=== PATIENT | female | born 1950 | race Caucasian/White ===

== ENCOUNTER 2017-08-31 08:48 | Outpatient (CLI) | payer OTHER ==
--- NOTE | 2017-09-01 12:43 | DEXA Report ---
REVISED: THIS REPORT WAS ORIGINALLY SIGNED ON 09/01/2017 @ 1514. NO CHANGES WERE MADE TO THE REPORT. THE [facility] RE[facility] ON . DEXA SCAN: 08/31/2017 INDICATION: Osteopenia. Osteoporosis screening. TECHNIQUE: Dual energy x-ray absorptiometry (DXA) was performed on a [employer] system. Regions measured are the AP spine, femoral neck, and, if needed, forearm. COMPARISON: None. In accordance with the International Society for Clinical Densitometry (ISCD) guidelines, data from previous exams may be reanalyzed using current recommendations and techniques. This is done to allow a more accurate basis for comparison with the current study. FINDINGS Data for the lumbar spine is as follows: REGION BMD (g/cm/cm) T-SCORE Z-SCORE L1 1.138 0.1 0.8 L2 1.244 0.4 1.1 L3 1.197 0.0 0.7 L4 0.997 -1.7 -1.0 TOTAL 1.135 -0.4 0.4 NOTE: All evaluable vertebrae are used for classification. Data for the hip is as follows: REGION BMD (g/cm/cm) T-SCORE Z-SCORE Neck 1.001 -0.3 0.6 TOTAL 0.938 -0.6 0.0 NOTE: The femoral neck or total proximal femur, whichever is lowest, is used for classification. IMPRESSION: THE WHO CLASSIFICATION BASED ON THE INTERNATIONAL REFERENCE STANDARD IS OSTEOPENIA. FRACTURE RISK IS INCREASED. RECOMMENDATION: Patients with diagnosis of osteoporosis or osteopenia should have regular bone mineral density assessment. For those eligible for Medicare, routine testing is allowed once every 2 years. Testing frequency can be increased for patients who have rapidly progressing disease or for those who are receiving medical therapy to restore bone mass. COMMENT: World Health Organization (WHO) definitions for osteoporosis and osteopenia: NORMAL BMD: T-score at -1.0 or higher, fracture risk is low. OSTEOPENIA BMD: T-score between -1.0 and -2.5, fracture risk is increased. OSTEOPOROSIS BMD: T-score at -2.5 or lower, fracture risk high. National Osteoporosis Foundation recommends: 1. Obtain adequate dietary calcium (at least 1200 mg per day) and vitamin D (400 -800 international units per day). 2. Participate, as appropriate, in regular weightbearing and muscle- strengthening exercise. 3. Avoid tobacco use and reduce alcohol and caffeine intake. 4. For more detailed information see the website at www.NOF.org. MTDD
== END 2017-08-31 08:49 | disposition home or self-care (01) ==
LOC: DI 08:48
PROVIDERS: ATTEND Naturopath
DX: M85.80 Other specified disorders of bone density and structure, unspecified site (principal); Z78.0 Asymptomatic menopausal state
CPT/HCPCS: 77080

== ENCOUNTER 2018-04-24 08:24 | Outpatient (CLI) | payer MEDICARE, BC | END 2018-04-24 08:25 | disposition home or self-care (01) | LOC: LAB.F 08:24 | PROVIDERS: ATTEND Naturopath | DX: R79.82 Elevated C-reactive protein (CRP) (principal) | CPT/HCPCS: 36415; 86141 ==

== ENCOUNTER 2018-08-30 08:26 | Outpatient (CLI) | payer MEDICARE, BC ==
[2018-08-30 11:09] LABS: BASOPHILS # (AUTO) 0.1 10^3/uL (0.0-0.1); BASOPHILS % (AUTO) 0.8 %; EOSINOPHILS # (AUTO) 0.1 10^3/uL (0.0-0.7); EOSINOPHILS % (AUTO) 2.4 %; HGB - HEMOGLOBIN 12.9 g/dL (12.0-16.0); LYMPHOCYTES # (AUTO) 1.7 10^3/uL (1.5-3.5); LYMPHOCYTES % (AUTO) 28.4 %; MEAN CORPUSCULAR HEMOGLOBIN 29.4 pg (27.0-31.0); MEAN CORPUSCULAR HGB CONC 33.4 g/dL (32.0-36.0); MEAN CORPUSCULAR VOLUME 88.1 fL (81.0-99.0); MONOCYTES # (AUTO) 0.5 10^3/uL (0.0-1.0); MONOCYTES % (AUTO) 8.1 %; NEUTROPHILS # (AUTO) 3.7 10^3/uL (1.5-6.6); NEUTROPHILS % (AUTO) 60.3 %; PLT - PLATELET COUNT 477 10^3/uL (130-450); RED BLOOD COUNT 4.39 10^6/uL (4.20-5.40); RED CELL DISTRIBUTION WIDTH 13.9 % (12.0-15.0); WHITE BLOOD COUNT 6.1 x10^3/uL (4.8-10.8)
[2018-08-30 11:44] LABS: HB2 TOTAL 13.9 g/dL; HEMOGLOBIN A1C 0.52 g/dL; HEMOGLOBIN A1C % 5.6 % (4.6-6.2)
[2018-08-30 12:41] LABS: ALBUMIN 3.5 g/dL (3.2-5.5); ALBUMIN/GLOBULIN RATIO 0.9 (1.0-2.2); ALKALINE PHOSPHATASE 109 IU/L (42-121); ALT ALANINE AMINOTRANSFERASE 24 IU/L (10-60); AST ASPARTATE AMINOTRANSFERASE 38 IU/L (10-42); BILIRUBIN,TOTAL 0.7 mg/dL (0.2-1.0); BUN - BLOOD UREA NITROGEN 10 mg/dL (6-20); CALCIUM 9.4 mg/dL (8.5-10.3); CARBON DIOXIDE - CO2 27 mmol/L (21-32); CHLORIDE 101 mmol/L (101-111); CHOL/HDL RATIO 5.6 (<4.4); CHOLESTEROL 237 mg/dL; CREATININE 1.1 mg/dL (0.4-1.0); GFR - MDRD 50 (>89); GLUCOSE 90 mg/dL (70-100); HDL CHOLESTEROL 42 mg/dL; LDL CHOLESTEROL,CALCULATED 163 mg/dL; LDL/HDL RATIO 3.9 (<4.4); SODIUM 137 mmol/L (135-145); TOTAL PROTEIN 7.2 g/dL (6.7-8.2); VLDL CHOLESTEROL 32 mg/dL
[2018-08-30 13:12] LABS: THYROID STIMULATING HORMONE 4.32 uIU/mL (0.34-5.60)
[2018-08-30 13:14] LABS: FREE T4 (FREE THYROXINE) 0.97 ng/dL (0.58-1.64)
[2018-08-30 13:19] LABS: TOTAL T3 1.08 ng/mL (0.87-1.78)
== END 2018-08-30 08:27 | disposition home or self-care (01) ==
LOC: LAB.F 08:26
PROVIDERS: ATTEND Naturopath
DX: Z00.01 Encounter for general adult medical examination with abnormal findings (principal); Z12.4 Encounter for screening for malignant neoplasm of cervix; Z13.0 Encounter for screening for diseases of the blood and blood-forming organs and certain disorders involving the immune mechanism; Z13.1 Encounter for screening for diabetes mellitus; Z13.220 Encounter for screening for lipoid disorders; Z13.21 Encounter for screening for nutritional disorder; Z13.29 Encounter for screening for other suspected endocrine disorder
CPT/HCPCS: 36415; 80053; 80061; 83036; 83721; 84439; 84443; 84480; 85025

== ENCOUNTER 2018-12-28 12:40 | Outpatient (CLI) | payer MEDICARE, BC | END 2018-12-28 12:41 | disposition home or self-care (01) | LOC: RT 12:40 | PROVIDERS: ATTEND Internal Medicine Cardiovascular Disease | DX: Z13.6 Encounter for screening for cardiovascular disorders (principal) | CPT/HCPCS: 93005 ==

== ENCOUNTER 2019-05-25 16:16 | Outpatient (CLI) | payer MEDICARE, BC ==
--- NOTE | 2019-05-26 10:04 | Ultrasound Report ---
Reason: ELEVATED CRP, PURE HYPERCHOLESTEROLEMIA, CARDIOVAS Procedure Date: 05/25/2019 Accession Number: [id number] / [id number] Procedure: US - Carotid Doppler Complete CPT Code: FULL RESULT: EXAM: BILATERAL CAROTID AND VERTEBRAL ARTERY DUPLEX DOPPLER ULTRASOUND: EXAM DATE: 05/25/2019 04:43 PM CLINICAL HISTORY: Elevated CRP, pure hypercholesterolemia. COMPARISON: None. TECHNIQUE: Grayscale imaging, color Doppler, and duplex spectral Doppler were used to evaluate the carotid and vertebral arteries bilaterally. Static images were obtained. FINDINGS: No significant plaque is identified in the right or left common or internal carotid arteries. Normal antegrade flow is present in bilateral vertebral arteries. VELOCITIES (cm/sec): Right CCA mid: PSV 90 cm/sec CCA dist: PSV 86 cm/sec ICA prox: PSV 68 cm/sec, EDV 23 cm/sec ICA mid: PSV 87 cm/sec, EDV 31 cm/sec ICA dist: PSV 57 cm/sec, EDV 23 cm/sec ECA: PSV 76 cm/sec Vert: PSV 44 cm/sec ICA/CCA: 0.96 Left CCA mid: PSV 80 cm/sec CCA dist: PSV 78 cm/sec ICA prox: PSV 59 cm/sec, EDV 23 cm/sec ICA mid: PSV 68 cm/sec, EDV 27 cm/sec ICA dist: PSV 66 cm/sec, EDV 27 cm/sec ECA: PSV 99 cm/sec Vert: PSV 39 cm/sec ICA/CCA: 0.85 ICA diameter stenosis: Right: Normal by velocity and <70% by NASCET criteria. Left: Normal by velocity and <70% by NASCET criteria. IMPRESSION: 1. No significant bilateral carotid artery plaquing. 2. In the right carotid artery there are no elevated carotid artery velocities to suggest hemodynamically significant stenosis. 3. In the left carotid artery there are no elevated carotid artery velocities to suggest hemodynamically significant stenosis. 4. Normal antegrade flow is present in bilateral vertebral arteries. General Recommendations: Stenosis =50% ICA - Follow-up ultrasound 6-12 months Stenosis <50% ICA - High Risk Patient with plaque - Follow-up ultrasound 1-2 years Normal Study but High Risk Patient - Follow-up ultrasound 3-5 years Management recommendations and diagnostic criteria are based on current IAC endorsed standards in Carotid Artery Stenosis: Grayscale and Doppler Ultrasound Diagnosis. Validated velocity measurements with angiographic measurements and velocity criteria are extrapolated from diameter data as defined by the Society of Radiologists in Ultrasound Consensus Conference Radiology 2003; 229;340-346. RADIA
== END 2019-05-25 16:17 | disposition home or self-care (01) ==
LOC: DI 16:16
PROVIDERS: ATTEND Naturopath
DX: Z13.6 Encounter for screening for cardiovascular disorders (principal); R79.82 Elevated C-reactive protein (CRP); E78.00 Pure hypercholesterolemia, unspecified; E78.01 Familial hypercholesterolemia
CPT/HCPCS: 93880

== ENCOUNTER 2019-11-13 11:56 | Outpatient (CLI) | payer MEDICARE, BC ==
--- NOTE | 2019-11-14 14:55 | DEXA Report ---
Reason: SCREENING FOR OSTEOPOROSIS Procedure Date: 11/13/2019 Accession Number: [id number] / [id number] Procedure: DEX - Dexa Spine and/or Hip CPT Code: Final Report FULL RESULT: EXAM: Dexa Spine and/or Hip, Dexa Forearm DATE: 11/13/2019 12:26 PM CLINICAL HISTORY: SCREENING FOR OSTEOPOROSIS. POSTMENOPAUSAL. TECHNIQUE: Dual energy x-ray absorptiometry (DXA) was performed on a [employer] System. Regions measured are the AP Spine, femoral neck, and if needed forearm. COMPARISON: 08/31/2017 In accordance with the International Society for Clinical Densitometry (ISCD) guidelines, data from previous exams may be reanalyzed using current recommendations and techniques. This is done to allow a more accurate basis for comparison with the current study. FINDINGS: The data for the lumbar spine is as follows: BMD (g/cm/cm) T-SCORE Z-SCORE REGION L1 1.073 -0.5 0.1 L2 1.149 -0.4 0.1 L3 1.199 0.0 0.6 L4 1.015 -1.5 -1.0 TOTAL 1.105 -0.6 -0.1 NOTE: All evaluable vertebrae are used for classification The data for the hip is as follows: BMD (g/cm/cm) T-SCORE Z-SCORE REGION Neck 0.905 -1.0 -0.1 TOTAL 0.937 -0.6 0.0 NOTE: The femoral neck or total proximal femur, whichever is lowest, is used for classification. The data for the left forearm is as follows: BMD (g/cm/cm) T-SCORE Z-SCORE REGION 1/3 0.821 -0.6 0.9 NOTE: The 33% radius of the nondominant forearm is used for classification. DXA RESULTS SUMMARY: Spine SCAN DATE AGE BMD CHANGE VS CHANGE VS PREVIOUS PREVIOUS % [birth year]/15[birth year]2019 [age] 1.105 -0.030* -2.6* 08/31/2017 [age] 1.135 * Denotes significant change at the 95% confidence level. Denotes dissimilar scan types or analysis methods. DXA RESULTS SUMMARY: Hip SCAN DATE AGE BMD CHANGE VS CHANGE VS PREVIOUS PREVIOUS % [birth year][age][birth year]2019 [age] 0.937 -0.001 -0.1 08/31/2017 [age] 0.938 * Denotes significant change at the 95% confidence level. Denotes dissimilar scan types or analysis methods. IMPRESSION: THE WHO CLASSIFICATION BASED ON THE INTERNATIONAL REFERENCE STANDARD IS OSTEOPENIA (REFERENCE LEFT HIP NECK). THE FRACTURE RISK IS INCREASED. RECOMMENDATION: Patients with diagnosis of osteoporosis or osteopenia should have regular bone mineral density assessment. For those eligible for Medicare, routine testing is allowed once every 2 years. Testing frequency can be increased for patients who have rapidly progressing disease or for those who are receiving medical therapy to restore bone mass. COMMENT: World Health Organization (WHO) definitions for osteoporosis and osteopenia: NORMAL BMD: T-score at -1.0 or higher, fracture risk is low OSTEOPENIA BMD: T-score between -1.0 and -2.5, fracture risk is increased. OSTEOPOROSIS BMD: T-score at -2.5 or lower, fracture risk is high. National Osteoporosis Foundation recommends: 1. Obtain adequate dietary calcium (at least 1200 mg per day) and vitamin D (400-800 international units per day). 2. Participate, as appropriate, in regular weightbearing and muscle-strengthening exercise. 3. Avoid tobacco use and reduce alcohol and caffeine intake. 4. For more detailed information see the website at www.NOF.org.
--- NOTE | 2019-11-14 14:55 | DEXA Report ---
Reason: L SPINE DENSITY DID FOREARM Procedure Date: 11/13/2019 Accession Number: [id number] / [id number] Procedure: DEX - Dexa Forearm CPT Code: Final Report FULL RESULT: EXAM: Dexa Spine and/or Hip, Dexa Forearm DATE: 11/13/2019 12:26 PM CLINICAL HISTORY: SCREENING FOR OSTEOPOROSIS. POSTMENOPAUSAL. TECHNIQUE: Dual energy x-ray absorptiometry (DXA) was performed on a [employer] System. Regions measured are the AP Spine, femoral neck, and if needed forearm. COMPARISON: 08/31/2017 In accordance with the International Society for Clinical Densitometry (ISCD) guidelines, data from previous exams may be reanalyzed using current recommendations and techniques. This is done to allow a more accurate basis for comparison with the current study. FINDINGS: The data for the lumbar spine is as follows: BMD (g/cm/cm) T-SCORE Z-SCORE REGION L1 1.073 -0.5 0.1 L2 1.149 -0.4 0.1 L3 1.199 0.0 0.6 L4 1.015 -1.5 -1.0 TOTAL 1.105 -0.6 -0.1 NOTE: All evaluable vertebrae are used for classification The data for the hip is as follows: BMD (g/cm/cm) T-SCORE Z-SCORE REGION Neck 0.905 -1.0 -0.1 TOTAL 0.937 -0.6 0.0 NOTE: The femoral neck or total proximal femur, whichever is lowest, is used for classification. The data for the left forearm is as follows: BMD (g/cm/cm) T-SCORE Z-SCORE REGION 1/3 0.821 -0.6 0.9 NOTE: The 33% radius of the nondominant forearm is used for classification. DXA RESULTS SUMMARY: Spine SCAN DATE AGE BMD CHANGE VS CHANGE VS PREVIOUS PREVIOUS % [birth year][age][birth year]/2019 69.1 1.105 -0.030* -2.6* 08/31/2017 66.9 1.135 * Denotes significant change at the 95% confidence level. Denotes dissimilar scan types or analysis methods. DXA RESULTS SUMMARY: Hip SCAN DATE AGE BMD CHANGE VS CHANGE VS PREVIOUS PREVIOUS % [birth year][age][birth year]/2019 69.1 0.937 -0.001 -0.1 08/31/2017 66.9 0.938 * Denotes significant change at the 95% confidence level. Denotes dissimilar scan types or analysis methods. IMPRESSION: THE WHO CLASSIFICATION BASED ON THE INTERNATIONAL REFERENCE STANDARD IS OSTEOPENIA (REFERENCE LEFT HIP NECK). THE FRACTURE RISK IS INCREASED. RECOMMENDATION: Patients with diagnosis of osteoporosis or osteopenia should have regular bone mineral density assessment. For those eligible for Medicare, routine testing is allowed once every 2 years. Testing frequency can be increased for patients who have rapidly progressing disease or for those who are receiving medical therapy to restore bone mass. COMMENT: World Health Organization (WHO) definitions for osteoporosis and osteopenia: NORMAL BMD: T-score at -1.0 or higher, fracture risk is low OSTEOPENIA BMD: T-score between -1.0 and -2.5, fracture risk is increased. OSTEOPOROSIS BMD: T-score at -2.5 or lower, fracture risk is high. National Osteoporosis Foundation recommends: 1. Obtain adequate dietary calcium (at least 1200 mg per day) and vitamin D (400-800 international units per day). 2. Participate, as appropriate, in regular weightbearing and muscle-strengthening exercise. 3. Avoid tobacco use and reduce alcohol and caffeine intake. 4. For more detailed information see the website at www.NOF.org.
== END 2019-11-13 11:57 | disposition home or self-care (01) ==
LOC: DI 11:56
PROVIDERS: ATTEND Naturopath
DX: Z13.820 Encounter for screening for osteoporosis (principal); M85.88 Other specified disorders of bone density and structure, other site; Z78.0 Asymptomatic menopausal state
CPT/HCPCS: 77080; 77081

== ENCOUNTER 2019-11-13 12:00 | Outpatient (CLI) | payer MEDICARE, BC ==
--- NOTE | 2019-11-15 09:05 | Mammography Report ---
Reason: ROUTINE MAMMO Procedure Date: 11/13/2019 Accession Number: [id number] / [id number] Procedure: [place] - Screening Mammo w/Rudy CPT Code: Final Report FULL RESULT: EXAM: Screening Mammo w/Rudy DATE: 11/13/2019 1:03 PM CLINICAL HISTORY: The patient is an asymptomatic 69-year-old female no reported personal nor family history breast cancer. TECHNIQUE: (B) - Bilateral CC, laterally exaggerated CC, MLO views were obtained. COMPARISON: 05/06/2015, 02/20/2014 and 01/25/2013 PARENCHYMAL PATTERN: (A) - The breasts demonstrate scattered fibroglandular densities bilaterally. FINDINGS: The pattern of nodular asymmetry is accentuated by interval involution and positional variation. There are no suspicious masses, calcifications, or areas of distortion. IMPRESSION: Benign findings. BI-RADS category 2. RECOMMENDATION: (ANNUAL) - Recommend routine annual screening mammography. BI-RADS CATEGORY: (2) - Benign Findings. STANDARD QUALIFYING STATEMENTS: A negative or benign imaging report should not preclude biopsy if clinically suspicious findings are present. Dense breasts may obscure an underlying neoplasm. This examination was reviewed with the aid of 3D breast imaging (tomosynthesis).
== END 2019-11-13 12:01 | disposition home or self-care (01) ==
LOC: DI 12:00
PROVIDERS: ATTEND Naturopath
DX: Z12.31 Encounter for screening mammogram for malignant neoplasm of breast (principal)
CPT/HCPCS: 77063; 77067

== ENCOUNTER 2022-03-10 10:02 | Outpatient (CLI) | payer MEDICARE, BC ==
--- NOTE | 2022-03-12 16:19 | Mammography Report ---
BILATERAL DIGITAL SCREENING MAMMOGRAM 3D/2D: 03/10/2022 CLINICAL: Routine screening. Comparison is made to exams dated: 11/13/2019 mammogram, 05/06/2015 mammogram - [facility], 02/20/2014 mammogram, and 01/25/2013 mammogram - outside facility. The tissue of both breasts i s predominantly fatty. There is a possible focal asymmetry in the right breast at 10 o'clock posterior depth. There is arch itectural distortion associated with the focal asymmetry. There also is an asymmetry in the right breast posterior depth lateral region seen on the craniocauda l view only. There is a possible focal asymmetry in the left breast at 1 o'clock middle depth. No other significant masses or calcifications are seen in either breast. IMPRESSION: INCOMPLETE: NEEDS ADDITIONAL IMAGING EVALUATION The possible focal asymmetry in the right breast at 10 o'clock posterior depth is indeterminate. Add itional views are recommended. The asymmetry in the right breast posterior depth lateral region seen on the craniocaudal view only i s indeterminate. Additional views with possible ultrasound are recommended. The possible focal asymmetry in the left breast at 1 o'clock middle depth is indeterminate. Addition al views with possible ultrasound are recommended. This exam was interpreted at Station ID: [id number]. NOTE: For mammograms, a report in lay terms will be sent to the patient. Approximately 15% of breast malignancies will not be visualized mammographically. In the management of a palpable breast mass, a negative mammogram must not discourage biopsy of a clinically suspicious lesion. Electronically Signed By: Garland Odonnell M.D., jr/mike:03/10/2022 11:35:07 ACR BI-RADS Category 0: Incomplete 3340F PARENCHYMAL PATTERN: (F) - The breast(s) demonstrate(s) diffuse fatty replacement. BI-RADS CATEGORY: (0) - 0 Mammo and [place] [id number] Immediate follow-up LATERALITY: (B)
== END 2022-03-10 10:03 | disposition home or self-care (01) ==
LOC: DI.S 10:02
PROVIDERS: ATTEND Naturopath
DX: Z12.31 Encounter for screening mammogram for malignant neoplasm of breast (principal); R92.8 Other abnormal and inconclusive findings on diagnostic imaging of breast

== ENCOUNTER 2022-03-16 12:52 | Outpatient (CLI) | payer MEDICARE, BC ==
--- NOTE | 2022-03-16 14:07 | DEXA Report ---
PROCEDURE: Dexa Spine and/or Hip INDICATIONS: POST MENOPAUSAL TECHNIQUE: Dual energy x-ray absorptiometry (DXA) was performed on a [employer] System. Regions measur ed are the AP Spine, femoral neck, and if needed forearm. COMPARISON: 11/13/2019 FINDINGS: Lumbar Spine: Bone Mineral Density 1.101 g/cm/cm,T score -0.7, normal, change from previous -0.4% Left Hip: Bone Mineral Density 0.944 g/cm/cm,T score -0.5, normal, change from previous 0.7% Left Femoral Neck: Bone Mineral Density 0.911 g/cm/cm, T score -0.9, normal, not compared to prior Left forearm: Bone Mineral Density 0.811 g/cm/cm, T score -0.7, normal, change from previous -1.2% (T score greater or equal to -1.0: NORMAL) (T score from -1.1 to -2.4: OSTEOPENIA) (T score less than or equal to -2.5 to: OSTEOPOROSIS) Impression: 1. Normal bone mineral density without significant change compared to prior. Patients with diagnosis of osteoporosis or osteopenia should have regular bone mineral density assess ment. For those eligible for Medicare, routine testing is allowed once every 2 years. Testing frequ ency can be increased for patients who have rapidly progressing disease or for those who are receivin g medical therapy to restore bone mass. Reviewed by: Wendy Arango MD on 03/16/2022 2:05 PM PDT Approved by: Wendy Arango MD on 03/16/2022 2:05 PM PDT Station ID: [id number]
== END 2022-03-16 12:53 | disposition home or self-care (01) ==
LOC: DI 12:52
PROVIDERS: ATTEND Naturopath
DX: Z78.0 Asymptomatic menopausal state (principal)

== ENCOUNTER 2022-05-25 13:02 | Outpatient (CLI) | payer MEDICARE, BC ==
--- NOTE | 2022-05-26 17:34 | Ultrasound Report ---
LIMITED ULTRASOUND OF LEFT BREAST: 05/25/2022 CLINICAL: Patient returns today to evaluate a focal asymmetry in the left breast. Comparison is made to exams dated: 05/25/2022 mammogram, 03/10/2022 mammogram, 11/13/2019 mammogram, 05/06 mammogram - [facility], 02/20/2014 mammogram, and 01/25/2013 mammogram - [facility]. Color flow and real-time ultrasound of the left breast 1 o'clock region were performed. Reynolds scale i mages of the real-time examination were reviewed. There is a benign 0.6 cm x 0.5 cm x 0.4 cm oval cyst with a septated internal wall in the left breast at 1 o'clock middle depth 4 cm from the nipple. This oval cyst is anechoic with a well-defined boun kaylyn and posterior acoustic enhancement. This correlates with mammography findings. Color flow imag ing demonstrates that there is no vascularity present. IMPRESSION: BENIGN There is no sonographic evidence of malignancy. The 0.6 cm oval cyst in the left breast is benign. A 1 year screening mammogram is recommended. Exam findings were conveyed to the patient. This exam was interpreted at Station ID: [id number]. Electronically Signed By: Chirag Escalante M.D. slc/:05/25/2022 14:44:04 Ultrasound BI-RADS: 2 Benign BI-RADS CATEGORY: (2) - 2 RECOMMENDATION: (ANNUAL) - Recommend routine annual screening mammography. [id number] 1 year screening LATERALITY: (B)
--- NOTE | 2022-05-26 17:34 | Mammography Report ---
BILATERAL DIGITAL DIAGNOSTIC MAMMOGRAM 3D/2D: 05/25/2022 CLINICAL: Patient returns today to evaluate asymmetries in bilateral breasts. Comparison is made to exams dated: 03/10/2022 mammogram, 11/13/2019 mammogram, and 05/06/2015 mammogram - [facility]. There are scattered fibroglandular elements in both breasts. There is a possible focal asymmetry in the right breast at 10 o'clock posterior depth. This is not s een in additional views. This is less prominent. There also is a possible asymmetry in the right breast posterior depth lateral region seen on the crate maker niocaudal view only. This is less prominent. There is a possible focal asymmetry in the left breast at 1 o'clock middle depth. This is less promi nent. No other significant masses or calcifications are seen in either breast. IMPRESSION: INCOMPLETE: NEEDS ADDITIONAL IMAGING EVALUATION The possible focal asymmetry in the right breast at 10 o'clock posterior depth is indeterminate. The possible asymmetry in the right breast posterior depth lateral region seen on the craniocaudal vi ew only is indeterminate. The possible focal asymmetry in the left breast at 1 o'clock middle depth is indeterminate. A targeted ultrasound is recommended and will immediately follow. Based on the Tyrer Cuzick model (a risk assessment model) the patients lifetime risk is 4.4% and her 10 year risk is 2.6%. According to the ACR, ACS, and NCCN guidelines, an annual breast MRI exam sherman g with mammogram is recommended if the patients lifetime risk is 20% or greater. This exam was interpreted at Station ID: [id number]. NOTE: For mammograms, a report in lay terms will be sent to the patient. Approximately 15% of breast malignancies will not be visualized mammographically. In the management of a palpable breast mass, a negative mammogram must not discourage biopsy of a clinically suspicious lesion. Electronically Signed By: Chirag Escalante M.D. [facility]/:05/25/2022 13:50:14 ACR BI-RADS Category 0: Incomplete 3340F PARENCHYMAL PATTERN: (A) - The breast(s) demonstrate(s) scattered fibroglandular densities. BI-RADS CATEGORY: (0) - 0 Ultrasound [id number] Immediate follow-up LATERALITY: (B)
--- NOTE | 2022-05-26 17:34 | Ultrasound Report ---
LIMITED ULTRASOUND OF RIGHT BREAST: 05/25/2022 CLINICAL: Patient returns today to evaluate a focal asymmetry in the right breast. Comparison is made to exams dated: 05/25/2022 mammogram, 03/10/2022 mammogram, 11/13/2019 mammogram, 05/06 mammogram - , 02/20/2014 mammogram, and 01/25/2013 mammogram - [facility]. Real-time ultrasound of the right breast 10-11 o'clock region was performed. Reynolds scale images of [facility] real-time examination were reviewed. No significant abnormalities were seen sonographically in the right breast in the region of possible asymmetries. IMPRESSION: NEGATIVE There is no sonographic evidence of malignancy. A 1 year screening mammogram is recommended. Exam findings were conveyed to the patient. This exam was interpreted at Station ID: [id number]. Electronically Signed By: Chirag Escalante M.D. slc/:05/25/2022 14:40:01 Ultrasound BI-RADS: 1 Negative BI-RADS CATEGORY: (1) - 1 RECOMMENDATION: (ANNUAL) - Recommend routine annual screening mammography. [id number] 1 year screening LATERALITY: (B)
== END 2022-05-25 13:03 | disposition home or self-care (01) ==
LOC: DI 13:02
PROVIDERS: ATTEND Naturopath
DX: R92.8 Other abnormal and inconclusive findings on diagnostic imaging of breast (principal)

== ENCOUNTER 2024-01-23 09:08 | Day surgery (SDC) | payer MEDICARE, BC ==
[2024-01-23] MEDS: LACTATED RINGERS 600 ML IV ONE (08:01)
[2024-01-23] MEDS: LACTATED RINGERS 1,000 ML IV ONE (09:25)
--- NOTE | 2024-01-23 10:12 | ANESTHESIA ---
Pre-Anesthesia VS, & Labs - Diagnosis screening - Procedure colonoscopy Vital Signs: Temp Pulse Resp BP Pulse Ox O2 Flow Rate 36.1 C L 79 12 139/94 H 99 01/23/24 09:13 01/23/24 09:13 01/23/24 09:13 01/23/24 09:13 01/23/24 09:13 Height: 5 ft 9 in Weight (kg): 107 kg Body Mass Index: 34.8 BMI Classification: Obese - NPO Other (prep as directed, last water at 6am) - Is Patient ?: No Home Medications and Allergies Home Medications: Ambulatory Orders Thyroid,Pork [[place] Thyroid] 15 mg PO QPM 01/23/24 Thyroid,Pork [[place] Thyroid] 60 mg PO 01/23/24 Thyroid,Pork [[place] Thyroid] 15 mg PO QPM 01/23/24 Thyroid,Pork [[place] Thyroid] 60 mg PO 01/23/24 Allergies/Adverse Reactions: Allergies Allergy/AdvReac Type Severity Reaction Status Date / Time No Known Drug Allergies Allergy Verified 01/23/24 09:38 Anes History & Medical History - Anesthetic History Anesthesia Complications: reports: No previous complications - Medical History Cardiovascular: reports: High cholesterol Pulmonary: reports: None Gastrointestinal: reports: None Urinary: reports: None Musculoskeletal: reports: None Endocrine/Autoimmune: reports: HyPOthyroidism Skin: reports: None Smoking Status: Former smoker Psychosocial: reports: Alcohol (2 glasses wine/week) - Surgical History General: reports: Appendectomy, Other Eyes Ears Nose Throat (EENT): reports: Cataracts Urologic: reports: Nephrectomy (donated) Exam General: Alert, Oriented x3 Dental: WNL Mouth Opening: Greater than 4 Fingerbreadths Mallampati classification: II Thyromental Distance: greater than 6 cm Respiratory: Lungs clear Cardiovascular: Regular rate Plan Anesthesia Type: Total IV Consent for Procedure(s) Verified and Reviewed: Yes Code Status: Attempt Resuscitation ASA classification: 2-Mild systemic disease Is this case an emergency?: No
[2024-01-23] MEDS ORDERED: PROPOFOL 500 MG/50 ML 500 MG/50 ML VIAL ONE (10:19)
[2024-01-23] MEDS: LACTATED RINGERS 700 ML IV ONE (10:48)
[2024-01-23 10:55] VITALS: O2SAT 95
[2024-01-23 11:24] VITALS: BP 129/79
--- NOTE | 2024-01-23 15:14 | ANESTHESIA POST OP EVALUATION ---
Anesthesia Post Eval - Post Anesthesia Eval Vitals: Last Vital Signs Temp 36.2 C L 01/23/24 11:22 Pulse 70 01/23/24 11:22 Resp 20 01/23/24 11:22 BP 129/79 01/23/24 11:22 Pulse Ox 95 01/23/24 11:22 O2 Flow Rate CV Function Including HR & BP: Stable Pain Control: Satisfactory Nausea & Vomiting: Negative Mental Status: Baseline Respiratory Status: Airway Patent Hydration Status: Satisfactory Anesthesia Complications: None
== END 2024-01-23 09:09 | disposition home or self-care (01) ==
LOC: SDS 09:08
PROVIDERS: ATTEND Surgery
PROC: 0DBN8ZX Excision of Sigmoid Colon, Via Natural or Artificial Opening Endoscopic, Diagnostic (ICD-10-PCS; 2024-01-23)
PROC: 0DBM8ZX Excision of Descending Colon, Via Natural or Artificial Opening Endoscopic, Diagnostic (ICD-10-PCS; principal; 2024-01-23 10:30)
DX: Z12.11 Encounter for screening for malignant neoplasm of colon (principal); K63.5 Polyp of colon; K57.30 Diverticulosis of large intestine without perforation or abscess without bleeding; K64.1 Second degree hemorrhoids; E66.9 Obesity, unspecified; Z68.34 Body mass index [BMI] 34.0-34.9, adult; Z83.79 Family history of other diseases of the digestive system; Z87.891 Personal history of nicotine dependence
CPT/HCPCS: 45380; J7120

== ENCOUNTER 2024-01-25 07:48 | Outpatient (CLI) | payer MEDICARE, BC ==
--- NOTE | 2024-01-26 07:37 | Mammography Report ---
BILATERAL DIGITAL SCREENING MAMMOGRAM 3D/2D: 01/25/2024 CLINICAL: Routine screening. Comparison is made to exams dated: 05/25/2022 mammogram, 03/10/2022 mammogram, 11/13/2019 mammogram, and 05/06/2015 mammogram - [facility]. There are scattered areas of fibroglandular density in both breasts (category b / 25%-50% glandular t issue). No significant masses, calcifications, or other findings are seen in either breast. There has been no significant interval change. IMPRESSION: NEGATIVE There is no mammographic evidence of malignancy. A 1 year screening mammogram is recommended. Based on the Tyrer Cuzick model (a risk assessment model) the patient's lifetime risk is 4.6% and her 10 year risk is 3.2%. According to the ACR, ACS, and NCCN guidelines, an annual breast MRI exam sherman g with mammogram is recommended if the patient's lifetime risk is 20% or greater. This exam was interpreted at Station ID: [id number]. NOTE: For mammograms, a report in lay terms will be sent to the patient. Approximately 15% of breast malignancies will not be visualized mammographically. In the management of a palpable breast mass, a negative mammogram must not discourage biopsy of a clinically suspicious lesion. Electronically Signed By: Chirag lopez/mike:01/25/2024 12:20:19 letter sent: No_Letter ACR BI-RADS Category 1: Negative 3341F PARENCHYMAL PATTERN: (A) - The breast(s) demonstrate(s) scattered fibroglandular densities. BI-RADS CATEGORY: (1) - 1 RECOMMENDATION: (ANNUAL) - Recommend routine annual screening mammography. [id number] 1 year screening LATERALITY: (B)
== END 2024-01-25 07:49 | disposition home or self-care (01) ==
LOC: DI.S 07:48
DX: Z12.31 Encounter for screening mammogram for malignant neoplasm of breast (principal); R92.323 Mammographic fibroglandular density, bilateral breasts

== ENCOUNTER 2024-05-09 08:07 | Outpatient (CLI) | payer MEDICARE, BC ==
--- NOTE | 2024-05-09 22:36 | DEXA Report ---
PROCEDURE: Dexa Spine and/or Hip INDICATIONS: POST MENOPAUSAL TECHNIQUE: Dual energy x-ray absorptiometry (DXA) was performed on a [employer] System. Regions measur ed are the AP Spine, femoral neck, and left forearm due to presence of density in lumbar spine. COMPARISON: 03/16/2022 FINDINGS: Lumbar Spine: Bone Mineral Density: 1.225 g/cm/cm,T score: 0.2. Since the most recent prior study, there has been a statistically significant increase in bone mineral density by 9.8 percent. Left Femoral Neck: Bone Mineral Density: 0.912 g/cm/cm, T score: -0.9. Left Hip: Bone Mineral Density: 0.953 g/cm/cm,T score: -0.4. Since the most recent prior study, there has been a statistically significant increase in bone mineral density by 1.0 percent. Left Forearm: Bone Mineral Density: 0.738 g/cm/cm, T score: -1.6. Since the most recent prior study, there has been a statistically significant decrease in bone mineral density by 9%. (T score greater or equal to -1.0: NORMAL) (T score from -1.1 to -2.4: OSTEOPENIA) (T score less than or equal to -2.5 to: OSTEOPOROSIS) Impression: By WHO criteria, this patient has low bone density (osteopenia). Interval statistical increase in bone mineral density of the lumbar spine. Interval statistical incre ase in bone mineral density of the hip. Interval statistical decrease in bone mineral density of the left forearm. Patients with diagnosis of osteoporosis or osteopenia should have regular bone mineral density assess ment. For those eligible for Medicare, routine testing is allowed once every 2 years. Testing frequ ency can be increased for patients who have rapidly progressing disease or for those who are receivin g medical therapy to restore bone mass. Reviewed by: Andres Tucker MD on 05/09/2024 10:34 PM PDT Approved by: Andres Tucker MD on 05/09/2024 10:34 PM PDT Station ID: [id number]
== END 2024-05-09 08:08 | disposition home or self-care (01) ==
LOC: DI 08:07
PROVIDERS: ATTEND Naturopath
DX: Z13.820 Encounter for screening for osteoporosis (principal); M85.832 Other specified disorders of bone density and structure, left forearm; Z78.0 Asymptomatic menopausal state